=== PATIENT | male | born 1960 | race Hispanic/Latino ===

== ENCOUNTER 2018-05-03 10:45 | Inpatient (IN) | payer BC ==
[~2018-05-03] VITALS: Ht 175.3 cm; Wt 78.8 kg
[2018-05-03 10:30] VITALS: BP 140/83
[2018-05-03 10:43] LABS: BASOPHILS % (AUTO) 0.4 % (0.0-5.0); EOSINOPHILS % (AUTO) 2.5 % (0.0-8.0); HEMATOCRIT 36.8 % (42-54); LYMPHOCYTES % (AUTO) 23.4 % (21.0-51.0); MEAN CORPUSCULAR HEMOGLOBIN 32.3 pg (27.0-33.0); MEAN CORPUSCULAR HGB CONC 34.9 g/dL (32.0-36.0); MEAN CORPUSCULAR VOLUME 92.7 fL (79-99); NEUTROPHILS % (AUTO) 62.7 % (40.0-77.0); PLATELET COUNT (AUTO) 267 K/uL (130-400); RED BLOOD CELL COUNT(AUTO) 3.97 MIL/uL (4.50-6.20); RED CELL DISTRIBUTION WIDTH 13.8 % (11.0-15.5); WHITE BLOOD COUNT (AUTO) 7.8 K/uL (4.8-10.8)
[2018-05-03 10:51] LABS: POTASSIUM 4.1 mmol/L (3.5-5.1)
[2018-05-03] MEDS ORDERED: ALLERGY MED PO (11:40)
[2018-05-03] MEDS ORDERED: CEFAZOLIN SODIUM 1 GM VIAL IVP SCH (12:45)
[2018-05-05] VITALS (21 sets, daily range): BP systolic 109–168; BP diastolic 73–91
[2018-05-05] MEDS ORDERED: LACTATED RINGERS 1000ML 1,000 ML IV ONE (06:20)
[2018-05-05] MEDS ORDERED: CEFAZOLIN SODIUM 1 GM VIAL ONE ×2 (06:20→11:05)
[2018-05-05] MEDS ORDERED: BUPIVACAINE/PF 0.25% 30ML VIAL IJ ONE (06:39)
[2018-05-05] MEDS ORDERED: MICROFIBRILLAR COLLAGEN 1 GM PACKAGE TP ONE (06:39)
[2018-05-05] MEDS ORDERED: BACITRACIN 50,000 UNIT VIAL ONE (06:39)
[2018-05-05] MEDS ORDERED: EPINEPHRINE 1 MG/ML AMPULE ONE (06:39)
[2018-05-05] MEDS ORDERED: THROMBIN-JMI 20000 UNIT KIT TP ONE (06:40)
[2018-05-05] MEDS ORDERED: LIDOCAINE PF 2% 5ML ABBOJECT ONE (06:57)
[2018-05-05] MEDS ORDERED: GLYCOPYRROLATE 0.2 MG/ML 5 ML VIAL ONE (06:57)
[2018-05-05] MEDS ORDERED: NEOSTIGMINE 5MG/5ML SYR IV ONE ×2 (06:57→09:57)
[2018-05-05] MEDS ORDERED: ONDANSETRON HCL 4 MG/2 ML VIAL ONE ×2 (06:57→09:56)
[2018-05-05] MEDS ORDERED: DEXAMETHASONE SOD PHOSPHATE 10MG/ML 1ML VIAL ONE ×2 (06:57→09:56)
[2018-05-05] MEDS ORDERED: PROPOFOL 10 MG/ML 20ML VIAL IV ONE (06:58)
[2018-05-05] MEDS ORDERED: FENTANYL CITRATE PF 50 MCG/1 ML 2ML VIAL ONE ×4 (06:58→12:19)
[2018-05-05] MEDS ORDERED: MIDAZOLAM HCL 1 MG/ML 2ML VIAL ONE ×2 (06:58→06:59)
[2018-05-05] MEDS ORDERED: SUCCINYLCHOLINE CHLORIDE 20 MG/ML 10 ML VIAL ONE (09:55)
[2018-05-05] MEDS ORDERED: ROCURONIUM BROMIDE 10MG/1ML 5ML VL ONE ×2 (09:55)
[2018-05-05] MEDS ORDERED: METOCLOPRAMIDE 10 MG/2 ML VIAL ONE (09:56)
[2018-05-05] MEDS ORDERED: LIDOCAINE HCL 4% LTA SOL 4 ML VIAL ONE (09:56)
[2018-05-05] MEDS ORDERED: LIDOCAINE HCL 2% JELLY 5 ML ONE (09:56)
[2018-05-05] MEDS ORDERED: ARTIFICIAL TEARS 3.5 GM OINTMENT ONE (09:56)
[2018-05-05] MEDS ORDERED: NOREPINEPHRINE BITARTRATE 1 MG/1 ML ML IV ONE (09:57)
[2018-05-05] MEDS ORDERED: PHENYLEPHRINE HCL 10 MG/ML 1ML VIAL IV ONE (09:57)
[2018-05-05] MEDS ORDERED: MANNITOL 20% 500ML BAG 500 ML IV ONE (10:44)
[2018-05-05] MEDS ORDERED: SODIUM CHLORIDE 0.9% 10 ML VIAL IVP PRN (13:00)
[2018-05-05] MEDS ORDERED: HYDROCODONE/ACETAMINOPHEN 5/325 MG TAB PO PRN (13:00)
[2018-05-05] MEDS ORDERED: PROMETHAZINE HCL 25 MG/ML 1ML AMPULE IM PRN (13:00)
[2018-05-05] MEDS ORDERED: CEFAZOLIN 2GM / 50 ML 50 ML IV SCH (13:00)
[2018-05-05] MEDS ORDERED: MORPHINE SULFATE 2 MG/ML 1ML SYG IVP PRN (13:00)
[2018-05-05] MEDS ORDERED: CEFAZOLIN SODIUM 1 GM VIAL IVP SCH (13:15)
[2018-05-05] MEDS ORDERED: MEPERIDINE-PF 25 MG/ML SYG ONE (13:26)
[2018-05-05] MEDS ORDERED: KETOROLAC TROMETHAMINE 15MG/ML ONE (14:01)
[2018-05-05] MEDS: LACTATED RINGERS 1000ML 1,000 ML IV SCH (14:49)
[2018-05-05] MEDS: DEXAMETHASONE SOD PHOSPHATE 4 MG/ML 1ML VIAL IVP SCH ×2 (15:04→20:14)
[2018-05-06] MEDS: DEXAMETHASONE SOD PHOSPHATE 4 MG/ML 1ML VIAL IVP SCH ×2 (01:16→06:01)
[2018-05-06] MEDS: LACTATED RINGERS 1000ML 1,000 ML IV SCH (03:11)
[2018-05-06 03:15] VITALS: BP 136/81
[2018-05-06 07:41] VITALS: BP 153/93
== END 2018-05-06 10:42 | disposition home or self-care (01) | DRG 29 ==
LOC: EDSTATUS 10:45 → DAHIP 05-05 05:55 → 4BH 05-05 13:55
PROVIDERS: ADMIT Neurological Surgery; ATTEND Neurological Surgery
PROC: 0RG20K0 Fusion of 2 or more Cervical Vertebral Joints with Nonautologous Tissue Substitute, Anterior Approach, Anterior Column, Open Approach (ICD-10-PCS; principal; 2018-05-05 07:30)
PROC: 0RB30ZZ Excision of Cervical Vertebral Disc, Open Approach (ICD-10-PCS; 2018-05-05 07:30)
PROC: 4A11X4G Monitoring of Peripheral Nervous Electrical Activity, Intraoperative, External Approach (ICD-10-PCS; 2018-05-05 07:30)
DX: M54.12 Radiculopathy, cervical region (principal); G95.20 Unspecified cord compression; M48.02 Spinal stenosis, cervical region; M25.78 Osteophyte, vertebrae; Z88.8 Allergy status to other drugs, medicaments and biological substances
CPT/HCPCS: 36415; 72020; 80051; 85025; A4218; A4344; J0171; J0330; J0690; J1100; J1885; J2001; J2175; J2250; J2370; J2405; J2704; J2710; J2765; J3010; J3490; J7030; J7120

== ENCOUNTER 2019-11-19 11:43 | Emergency (ER) | payer BC ==
[~2019-11-19 11:43] MED LIST: ALLERGY MED PO
[2019-11-19] MEDS ORDERED: TETANUS/DIPHTHERIA TOXOID [ADULT] 0.5 ML VIAL IM ONE (12:21)
== END 2019-11-19 13:09 | disposition home or self-care (01) ==
LOC: EDH 11:43
DX: S60.352A Superficial foreign body of left thumb, initial encounter (principal); Z88.6 Allergy status to analgesic agent; Z98.890 Other specified postprocedural states; W26.8XXA Contact with other sharp object(s), not elsewhere classified, initial encounter; Y93.89 Activity, other specified; Y92.89 Other specified places as the place of occurrence of the external cause; Y99.8 Other external cause status
CPT/HCPCS: 73140; 90471; 90714